=== PATIENT | female | born 1955 | race Caucasian/White ===

== ENCOUNTER 2017-10-16 05:45 | Day surgery (SDC) | payer BC ==
[2017-10-16] MEDS ORDERED: Ketamine HCl 50 MG/ML IJ ONE (05:46)
[2017-10-16] MEDS ORDERED: DIPRIVAN 200 MG/20 ML IV ONE (05:46)
[2017-10-16] MEDS ORDERED: Lactated Ringers 1,000 ML IV ONE ×2 (06:23→08:33)
[2017-10-16] MEDS ORDERED: Lactated Ringers 1,000 ML IV SCH (07:00)
[2017-10-16 09:37] LABS: 027 TOX PROD PRESUMPTIVE NEGATIVE (NEGATIVE); TOXIGENIC C. DIFF ORG NEGATIVE (NEGATIVE)
[2017-10-16 09:40] VITALS: O2SAT 99
[2017-10-16 09:45] VITALS: BP 122/84; PULSE 84
--- NOTE | 2017-10-16 11:11 | OP ---
SURGERY DATE/TIME: 10/16/2017 0755 PREOPERATIVE DIAGNOSIS: Chronic diarrhea, history of colon polyps with diagnosis of pancolitis. POSTOPERATIVE DIAGNOSIS: Colonoscopy with biopsy. PROCEDURE: Colonoscopy. SURGEON: Dr. Yañez. ANESTHESIA: MAC. Medications given by anesthesia department. HISTORY: The patient is a 61 year-old white female who reports problems with chronic diarrhea. She previously had a colonoscopy at which time polyps had been removed. The patient was felt the need to have endoscopic evaluation. She was appraised of the risks of the procedure including the risk of perforation, phlebitis, untoward reaction to medication, bleeding and missed lesions. The patient verbalized her understanding and desired to have the procedure performed. DESCRIPTION OF PROCEDURE: The patient was given the medications by the anesthesia department. She had continuous pulse oximetry, ECG monitoring, intermittent blood pressure monitoring and tidal CO2 monitoring during the examination. She was placed in the left lateral decubitus position. A digital rectal examination was performed and revealed normal anal sphincter tone and no masses. The flexible Olympus pediatric colonoscope was used to intubate the rectum. A view of the colon was developed sequentially to the cecum. Upon insertion and withdrawal was noted to be an inflamed colon with mucous and friability. Biopsies were obtained throughout the colon. The area of most intense inflammation appeared to be more on the right side of the colon. Upon insertion and withdrawal including a retroflex view in the rectum, no mucosal lesions being encountered the scope was removed from the patient who tolerated the procedure well and was sent back to OP recovery in good condition. The prep was noted to be fair to good.
== END 2017-10-16 09:25 | disposition home or self-care (01) ==
LOC: SDC 05:45
PROVIDERS: ATTEND Family Medicine
DX: R19.7 Diarrhea, unspecified (principal); Z86.010 Personal history of colon polyps; K51.00 Ulcerative (chronic) pancolitis without complications
CPT/HCPCS: 87493; 88305; 94250; J2704

== ENCOUNTER 2021-06-08 11:34 | Day surgery (SDC) | payer MEDICARE, OTHER ==
[2021-06-08] MEDS ORDERED: Depo-Medrol 40 MG/ML IM ONE (11:35)
[2021-06-08] MEDS ORDERED: Sodium Chloride 0.9(Preservative Free) 10 ML IJ ONE (11:35)
[2021-06-08] MEDS ORDERED: Lactated Ringers 1,000 ML IV ONE (13:33)
[2021-06-08] MEDS ORDERED: DIPRIVAN 200 MG/20 ML IV ONE (13:58)
--- NOTE | 2021-06-08 16:40 | XRAY ---
Indication: Left L4-S1 transforaminal ROLANDO. Intraoperative fluoroscopy provided for 30 seconds. 4 digital spot images submitted for interpretation demonstrates posterior needle tips projecting over the expected left L4 and L5 nerve roots. Small amount of contrast injected for needle tip placement. Correlate with intraoperative findings/report.
--- NOTE | 2021-06-08 16:45 | XRAY ---
30 seconds fluoroscopy time in surgery for left L4-S1 transforaminal ROLANDO.
== END 2021-06-08 14:21 | disposition home or self-care (01) ==
LOC: SDC-PAIN 11:34
PROVIDERS: ATTEND Psychiatry & Neurology Pain Medicine
DX: M54.16 Radiculopathy, lumbar region (principal); Z79.899 Other long term (current) drug therapy
CPT/HCPCS: 64483; 64484; 72100; 77003; J1030; J2704; Q9966

== ENCOUNTER 2021-06-29 10:21 | Day surgery (SDC) | payer MEDICARE, OTHER ==
[2021-06-29] MEDS ORDERED: Depo-Medrol 40 MG/ML IM ONE (10:22)
[2021-06-29] MEDS ORDERED: BUPIVACAINE 0.5% VIAL IJ ONE (10:22)
[2021-06-29] MEDS ORDERED: DIPRIVAN 200 MG/20 ML IV ONE (13:13)
--- NOTE | 2021-06-29 14:49 | XRAY ---
Indication: Bilateral SI joint injection. Intraoperative fluoroscopy provided for 16 seconds. 5 digital spot images submitted for interpretation demonstrates posterior needle tip projecting over the inferior left and right SI joints. Correlate with intraoperative findings/report.
--- NOTE | 2021-06-29 16:46 | XRAY ---
16 seconds of fluoroscopy was used in surgery for bilateral SI joint injections.
== END 2021-06-29 13:35 | disposition home or self-care (01) ==
LOC: SDC-PAIN 10:21
PROVIDERS: ATTEND Psychiatry & Neurology Pain Medicine
DX: M46.1 Sacroiliitis, not elsewhere classified (principal); Z79.899 Other long term (current) drug therapy
CPT/HCPCS: 27096; 72202; 77002; G0260; J1030; J2704